=== PATIENT | female | born 1955 | race Caucasian/White ===

== ENCOUNTER 2021-10-20 11:34 | Emergency (ER) | payer BC, SELFPAY ==
[2021-10-20] VITALS (8 sets, daily range): BP systolic 101–155; BP diastolic 77–94; PULSE 74–97; RESP 14–20; TEMP 36.6; O2SAT 96–99; BMI 30.5
[2021-10-20 12:24] LABS: Absolute Lymphocyte Count 1.22 X10^3/uL (0.83-4.51); Absolute Neutrophil Count 1.8 X10^3/uL (2.0-7.7); Basophil# 0.01 X10^3/uL; Basophil% 0.3 % (0-1); Eosinophil# 0.04 X10^3/uL; Eosinophils% 1.1 % (0-5); Hematocrit 41.5 % (37-47); Hemoglobin 13.9 g/dL (12.0-15.0); Lymphocyte # 1.22 X10^3/ul (0.83-4.51); Lymphocyte % 33.4 % (19-41); Mean Corp Hgb Conc 33.5 g/dL (32-36); Mean Corpuscular Hgb 29.2 pg (27.0-32.0); Mean Corpuscular Volume 87.2 fL (81-99); Mean Platelet Vol. 8.9 fl (6.2-12.0); Monocyte# 0.63 X10^3/uL; Monocyte% 17.3 % (0-10); NRBC Flagged by Analyzer 0 % (0-5); Neutrophil # 1.75 X10^3/uL (2.7-7.7); Neutrophil % 47.9 % (47-70); Platelet Count 223 K/mm3 (150-450); RBC Distribution Width CV 14.5 % (11.6-14.6); RBC Distribution Width SD 46.8 fl (35.1-43.9); Red Blood Count 4.76 M/mm3 (4.2-5.4); White Blood Count 3.7 K/mm3 (4.4-11.0)
[2021-10-20 12:27] LABS: Anion Gap 8 (5-15); BUN 18 mg/dL (7-18); BUN/Creat Ratio 27.3 RATIO (10-20); Calcium,Total 8.9 mg/dL (8.5-10.1); Chloride 104 mmol/L (98-107); Creatinine, Serum 0.66 mg/dL (0.55-1.02); EST Glomerular Filtration Rate 96 mL/min (>60); Est Glom Filt Rate - Afr Amer 116 mL/min (>60); Estimated Creatinine Clearance 77.49 ml/min; Glucose 84 mg/dL (74-106); Potassium 3.7 mmol/L (3.5-5.1); Sodium Level 141 mmol/L (136-145)
--- NOTE | 2021-10-20 12:40 | EKG12_ITS ---
Test Reason : CHEST TIGHTNESS Blood Pressure : / mmHG Vent. Rate : 083 BPM Atrial Rate : 083 BPM P-R Int : 146 ms QRS Dur : 078 ms QT Int : 358 ms P-R-T Axes : 071 057 039 degrees QTc Int : 420 ms Normal sinus rhythm Normal ECG Confirmed by BOUCHRA ENCISO, LUIS ([id number]), film editor supervisor EDA MAE ([id number]) on 10/22/2021 9:56:38 AM Referred By: PL Confirmed By:LUIS SHOOK MD
--- NOTE | 2021-10-20 12:42 | EDS_ITS ---
HPI History of Present Illness Chief Complaint: Shortness of Breath Informant: patient Narrative Narrative: Patient presents with episode of dyspnea and a little bit of chest pressure at home. This patient started having symptoms of Covid Tuesday morning. She had nausea vomiting but that is resolved. That evening she started getting some coughing and wheezing. She does have a history of asthma. No other medical complaints. She also drove up from [place] recently. No history of DVT or PE. No family history. No family history of heart disease. She is a non- smoker. Patient got out of shower this morning. She was wheezing a lot. She checked her oxygen saturation and it was reading as low as 77%. She sat down and she felt better and the sats slowly went up to the mid 90s. She also then coughed up a lot of thick mucus. Since then she has felt better. Past medical history of asthma Medication albuterol inhaler No known drug allergies No recent surgeries Non-smoker lives with in [place]. PFSH PFSH Medical History no medical history Surgical History no surgical history Social History Smoking Status: Never smoker ROS ROS ED Constitutional Constitutional ED: Denies chills or fever(s) Eyes Eyes: Denies change in vision ENT ENT ED: Reports rhinorrhea; Denies ear pain or sore throat Cardiovascular Cardiovascular: Reports chest pain; Denies palpitations Respiratory/Chest Respiratory/Chest: Reports cough, dyspnea and sputum Gastrointestinal Gastrointestinal: Reports nausea and vomiting; Denies diarrhea Genitourinary Genitourinary ED: Denies dysuria Musculoskeletal Musculoskeletal: Denies myalgias Integumentary Denies rash Neurologic Neurologic: Denies headache(s) Psychiatric Psychiatric: Denies depression Endocrine Endocrinology: Denies polydipsia or polyuria Hematologic/Lymphatic Hematologic/Lymphatic: Denies easy bleeding or easy bruising Allergic/Immunologic Allergic/Immunologic ED: Denies mouth swelling or urticaria EXAM Physical Exam Const Vital Signs: 10/20/21 11:34 10/20/21 12:02 10/20/21 12:04 Temperature 97.9 F Temperature Source Temporal Pulse Rate 97 86 Respiratory Rate 20 H 14 20 H Respiratory Effort Respiratory Depth Respiratory Pattern Blood Pressure 155/94 H 119/83 H Blood Pressure Mean 114 95 Pulse Ox 99 96 97 Oxygen Delivery Method Room Air Room Air 10/20/21 12:07 10/20/21 13:08 10/20/21 14:09 Temperature Temperature Source Pulse Rate 80 80 Respiratory Rate 14 20 H Respiratory Effort Normal Respiratory Depth Normal Respiratory Pattern Normal Normal Blood Pressure 101/82 H Blood Pressure Mean 88 Pulse Ox 98 Oxygen Delivery Method Room Air Room Air Positive well nourished and well developed General Appearance ED: well developed and NAD HEENT atraumatic; Negative for trauma Eyes PERRL Neck no lymphadenopathy, supple and no JVD Resp normal respiratory effort and clear to auscultation bilaterally Resp Narrative: Saturations are now 97% on room air with good waveform. Patient looks completely comfortable. Her lungs do sound clear now. She states she is asymptomatic at this time. Auscultation: Negative for rales, rhonchi or wheezes Cardio regular rate and regular rhythm GI non-tender Palpation: soft Back/Spine normal to inspection Extremity normal to inspection General Extremety ED: Negative for edema or tenderness General Extremity: Negative for edema Neuro oriented x3 Sensorium / Orientation: alert Psych mental status grossly normal Skin Lesions: no lesions Rashes: no rashes MDM MDM MDM Narrative Medical decision making narrative: Patient's blood work is a low white count consistent with her history of Covid. D-dimer is negative. Electrolytes are unremarkable. Troponin is negative. X-ray shows some mild right middle lobe atelectasis versus pneumonia. She does have Covid. This is likely the source. We walked the patient and her saturations stayed very good at about 96%. I think the patient likely had a mucous plug episode this morning. She does not need to be admitted at this time. She has meds for her asthma. We will get her home at this time. She would like to go home now. Lab Data Attestation: I reviewed the patient's lab results. Labs: Laboratory Results - last 24 hr 10/20/21 10/20/21 10/20/21 11:50 11:50 11:50 WBC 3.7 L RBC 4.76 Hgb 13.9 Hct 41.5 MCV 87.2 MCH 29.2 MCHC 33.5 RDW Std Deviation 46.8 H RDW Coeff of Анна 14.5 Plt Count 223 MPV 8.9 Immature Gran % (Auto) 0.000 Neut % (Auto) 47.9 Lymph % (Auto) 33.4 [place] % (Auto) 17.3 H Eos % (Auto) 1.1 Baso % (Auto) 0.3 Absolute Neuts (auto) 1.8 L Absolute Lymphs (auto) 1.22 Nucleated RBC % 0 D-Dimer Quant (PE/DVT) 0.47 Sodium 141 Potassium 3.7 Chloride 104 Carbon Dioxide 29.0 Anion Gap 8 BUN 18 Creatinine 0.66 Estim Creat Clear Calc 77.49 Est GFR (MDRD) Af Amer 116 Est GFR (MDRD) Non-Af 96 BUN/Creatinine Ratio 27.3 H Glucose 84 Calcium 8.9 Troponin I High Sens 10/20/21 11:50 WBC RBC Hgb Hct MCV MCH MCHC RDW Std Deviation RDW Coeff of Анна Plt Count MPV Immature Gran % (Auto) Neut % (Auto) Lymph % (Auto) [place] % (Auto) Eos % (Auto) Baso % (Auto) Absolute Neuts (auto) Absolute Lymphs (auto) Nucleated RBC % D-Dimer Quant (PE/DVT) Sodium Potassium Chloride Carbon Dioxide Anion Gap BUN Creatinine Estim Creat Clear Calc Est GFR (MDRD) Af Amer Est GFR (MDRD) Non-Af BUN/Creatinine Ratio Glucose Calcium Troponin I High Sens 4 Radiography Diagnostic Testing: Clinical Impression(s) from Imaging Studies Chest X-Ray 10/20/21 12:55 IMPRESSION: Right middle lobe pneumonia or atelectasis. Electronically Signed: Abel Kang MD at 13:09 EST Tel , Service support , Discharge Plan Triage Chief Complaint: Shortness of Breath ED Provider: Kamlesh Barrios Dx/Rx/DC Orders Clinical Impression: Pneumonia due to 2019 novel coronavirus, Hypoxia, Mucus plugging of bronchi Instructions: Coronavirus Disease 2019 (COVID-19): Caring for Yourself or Others Referrals: NIK RICARDO [Other] - 1 Week if not improving Disposition Disposition: Home, Self Care
--- NOTE | 2021-10-20 12:55 | RAD_ITS ---
STUDY: X-RAY CHEST REASON FOR EXAM: Female, 66 years old. cough TECHNIQUE: Single AP portable view of the chest. COMPARISON: None. FINDINGS: Alveolar opacity in the lower right lung which silhouettes right heart border consistent with right middle lobe pneumonia or atelectasis. There is no demonstrated pleural abnormality. Normal size heart. Normal mediastinum and kenia. Normal visualized pulmonary arteries. Normal visualized aortic arch and descending thoracic aorta. Normal visualized thoracic spine. Normal visualized ribs, clavicles, and shoulders. There is no demonstrated abnormality of the visualized soft tissue structures of the upper abdomen. RAD/Chest 1 View (Portable) IMPRESSION: Right middle lobe pneumonia or atelectasis. Electronically Signed: Abel Kang MD at 13:09 EST Tel , Service support ,
[2021-10-20] MEDS: Ipratropium/Albuterol Sulfate 3 ML AMPUL.NEB INHALATION (13:06)
[2021-10-20 13:25] LABS: D-Dimer Quantitative (DVT/PE) 0.47 FEU/ug/m (0.27-0.49)
[2021-10-20 13:31] LABS: Troponin-I HS 4 pg/mL (3.0-54.0)
== END 2021-10-20 15:23 | disposition home or self-care (01) ==
PROVIDERS: Emergency Provider Emergency Medicine
DX: U07.1 COVID-19 (principal); J12.82 Pneumonia due to coronavirus disease 2019; R09.02 Hypoxemia; T17.990A Other foreign object in respiratory tract, part unspecified in causing asphyxiation, initial encounter
CPT/HCPCS: 71045; 80048; 84484; 85025; 85379; 87426; 93005; 94640; 94760; 99284; A4216

== ENCOUNTER 2021-10-22 12:26 | Outpatient (CLI) | payer BC, SELFPAY ==
[2021-10-22] MEDS: 0.9% Saline Lock 10 ML Syringe IV (12:33)
[2021-10-22 12:35] VITALS: BP 132/85; PULSE 96; RESP 16; TEMP 36.6; O2SAT 98; BMI 29.2
[2021-10-22 13:18] VITALS: BP 123/85; PULSE 79; RESP 16; TEMP 36.8; O2SAT 99
[2021-10-22 14:05] VITALS: BP 129/83; PULSE 75; RESP 16; TEMP 36.6; O2SAT 100
== END 2021-10-22 14:18 | disposition home or self-care (01) ==
LOC: MS3OUT 12:26 → MS3 12:27
PROVIDERS: Referring Provider Emergency Medicine; Visit Provider Emergency Medicine
DX: Z23 Encounter for immunization (principal); U07.1 COVID-19
CPT/HCPCS: J7050; M0245; Q0245; A4216